=== PATIENT | male | born 1930 | race Caucasian/White ===

== ENCOUNTER 2017-12-09 11:03 | Inpatient (IN) ==
--- NOTE | 2017-12-09 12:02 | ED.PDOC ---
General ED Provider: Dr. KAYLA GUERRA Chief Complaint: Respiratory Complaint Mode of Arrival: Wheelchair Information Source: Patient Exam Limitations: No limitations Primary Care Provider: STEPHEN GEIGER Nursing and Triage Documentation Reviewed and Agree: Yes Does patient meet sepsis criteria?: No System Inflammatory Response Syndrome: Not Applicable Sepsis Protocol: For patient's 13 years and over: Temp is 96.8 and below OR 101 and greater Pulse >90 BPM Resp >20/minute Acutely Altered Mental Status Are patient's symptoms suggestive of a new infection, such as: -Pneumonia -Skin, Soft Tissue -Endocarditis -UTI -Bone, Joint Infection -Implantable Device -Acute Abdominal Infection -Wound Infection -Meningitis -Blood Stream Catheter Infection -Unknown Past Medical History - Social History Smoking Status: Current every day smoker Hx Substance Use: No Alcohol Screening: Occasionally Course - Course Vital Signs: Temp Pulse Resp BP Pulse Ox 12/09/17 11:06 96.9 F L 93 H 20 90/57 L 89 L Departure - Departure Allergies/Adverse Reactions: Allergies melatonin Adverse Reaction (Verified 12/09/17 11:46) Home Medications: Ambulatory Orders Acetaminophen [Tylenol] 1,000 mg PO DAILY 12/09/17 Acetaminophen/Diphenhydramine [Acetaminophen Pm Geltab] 1 each PO BEDTIME Aspirin 81 mg PO DAILY 12/09/17 Atorvastatin Calcium 40 mg PO BEDTIME 12/09/17 Cholecalciferol (Vitamin D3) [Vitamin D3] 1,000 unit PO BID 12/09/17 Escitalopram Oxalate 5 mg PO DAILY 12/09/17 Ferrous Sulfate 325 mg PO DAILY 12/09/17 L.acidoph,Paracasei, B.lactis [Probiotic] 2 each PO DAILY 12/09/17 Pantoprazole Sodium 40 mg PO DAILY 12/09/17 Phenazopyridine HCl 100 mg PO DAILY 12/09/17 Timolol Maleate 0.5% [Timoptic 0.5% Opth] 1 drop OP BEDTIME 12/09/17
[2017-12-09] MEDS ORDERED: ALBUTEROL 0.042% NEB NEB STA (12:05)
--- NOTE | 2017-12-09 12:25 | DI ---
EXAM: PA and lateral views of the chest HISTORY: Possible aspiration COMPARISON: None FINDINGS: There are some patchy increased lung markings in the left base and to a lesser degree the right base. There is no lobar infiltrate or large effusion. Cardiac and mediastinal silhouettes masood w no acute abnormality. Pacemaker is present with intact leads. No acute osseous or soft tissue abnor malities. IMPRESSION: 1. Patchy increased lung markings in the bilateral lung bases right greater than left. Although thi s could be on the basis of aspiration, chronic scarring and/or atelectasis could have a similar appea sharon. Follow-up would help clarify.
[2017-12-09] MEDS ORDERED: ZOSYN 3.375 GM 3.375 GM in SODIUM CHLORIDE 50 ML IV STA (13:33)
[2017-12-09] MEDS ORDERED: SODIUM CHLORIDE 1,000 ML IV STA (13:34)
[2017-12-09] MEDS ORDERED: VANCOMYCIN 1 GM in SODIUM CHLORIDE 250 ML IV STA (13:45)
[2017-12-09] MEDS ORDERED: XOPENEX 0.63 MG NEB PRN (13:47)
[2017-12-09] MEDS ORDERED: SOLU-MEDROL 125 MG IVP SCH (14:00)
[2017-12-09 15:10] VITALS: BMI 25.4
[2017-12-09] MEDS: SOLU-MEDROL 125 MG IVP SCH ×2 (15:37→21:48)
[2017-12-09] MEDS: SODIUM CHLORIDE 1,000 ML IV SCH (15:38)
[2017-12-09] MEDS: LOVENOX SUBCUT SCH (15:48)
[2017-12-09] MEDS ORDERED: LIPITOR ONE (19:56)
[2017-12-09] MEDS ORDERED: VITAMIN D ONE (19:56)
[2017-12-09] MEDS ORDERED: NON-FORMULARY MEDICATION (Atorvastatin Calcium [Atorvastatin Calcium] 40 MG) PO SCH (21:00)
[2017-12-09] MEDS: TIMOPTIC 0.5% OPTH OP SCH (21:49)
[2017-12-09] MEDS: VITAMIN D PO SCH (21:49)
[2017-12-10] MEDS: SODIUM CHLORIDE 1,000 ML IV SCH ×4 (03:29→23:51)
[2017-12-10] MEDS: SOLU-MEDROL 125 MG IVP SCH ×3 (05:02→21:31)
[2017-12-10] MEDS: ASPIRIN CHEWABLE PO SCH (08:15)
[2017-12-10] MEDS: VITAMIN D PO SCH ×2 (08:16→21:31)
[2017-12-10] MEDS: FERROUS SULFATE PO SCH (08:16)
[2017-12-10] MEDS: TYLENOL PO SCH (08:16)
[2017-12-10] MEDS: LEXAPRO PO SCH (08:16)
[2017-12-10] MEDS: PYRIDIUM PO SCH (08:16)
[2017-12-10] MEDS: PROTONIX PO SCH (08:16)
[2017-12-10] MEDS: LOVENOX SUBCUT SCH (08:17)
[2017-12-10] MEDS: FLORASTOR PO SCH (08:17)
[2017-12-10] MEDS ORDERED: NON-FORMULARY MEDICATION (Ferrous Sulfate [Ferrous Sulfate] 325 MG) PO SCH (09:00)
[2017-12-10] MEDS ORDERED: ACIDOPH PARACASEI B LACTIS PO SCH (09:00)
[2017-12-10] MEDS ORDERED: ESCITALOPRAM OXALATE 5 MG PO SCH (09:00)
[2017-12-10] MEDS: ZOSYN 3.375 GM 3.375 GM in SODIUM CHLORIDE 50 ML IV SCH ×4 (09:11→23:34)
[2017-12-10] MEDS ORDERED: DUONEB NEB SCH (12:00)
[2017-12-10] MEDS: DUONEB NEB SCH ×2 (14:20→20:05)
[2017-12-10] MEDS: TIMOPTIC 0.5% OPTH OP SCH (21:31)
[2017-12-10] MEDS: LIPITOR PO SCH (21:31)
[2017-12-11] MEDS: DUONEB NEB SCH ×4 (04:50→19:50)
[2017-12-11] MEDS: SOLU-MEDROL 125 MG IVP SCH ×3 (06:07→21:02)
[2017-12-11] MEDS: ZOSYN 3.375 GM 3.375 GM in SODIUM CHLORIDE 50 ML IV SCH ×3 (06:07→17:56)
[2017-12-11] MEDS: PROTONIX PO SCH (06:08)
[2017-12-11] MEDS: FLORASTOR PO SCH (08:57)
[2017-12-11] MEDS: LEXAPRO PO SCH (08:57)
[2017-12-11] MEDS: VITAMIN D PO SCH ×2 (08:57→21:03)
[2017-12-11] MEDS: PYRIDIUM PO SCH (08:57)
[2017-12-11] MEDS: ASPIRIN CHEWABLE PO SCH (08:59)
[2017-12-11] MEDS: FERROUS SULFATE PO SCH (08:59)
[2017-12-11] MEDS: TYLENOL PO SCH (09:00)
[2017-12-11] MEDS: LOVENOX SUBCUT SCH (09:01)
--- NOTE | 2017-12-11 11:29 | RS.BEDDYS ---
Subjective Number of treatment sessions: 1 Date of Evaluation: 12/11/17 Treatment Diagnosis: aspiration pneumonia Current Level of Function: This 87 year old male presents at the bedside with coughing, decreased safety awareness, and general weakness. The patient is at risk for aspiration/penetration with PO intake. Current Diet: Puree and honey thick liquids. Current Subjective/complaints:: The patient reported he has a hx of swallowing difficulty. However, he could not verbalize or describe swallowing difficulties. The patient's son-in-law reported the pt had a swallow study completed in the past year. The study revealed strategies could be utilized to reduce risk for aspiration. However, the son-in-law stated that the patient has no hx with modifications with diet texture or liquid consistency. Medical History Comments:: UTI, dysphagia, pneumonia Hx Home Medications: Refer to medications for current list. Patient's Goals: To consume safest and least restrictive diet. General Information - General Denture Type: Full- Upper (Fits ), Partial- Lower (Requires denture cream, but fits well.) Patient Orientation: Person Ability to Follow Directions: Fair (Required a lot of visual cues and a model to imitate HOSE BUILDER's instructions.) - Voice Voice Quality: Harsh (Grave-like quality) Voice Loudness: Mildly Loud Oral-Facial Assessment - Face Face Comment: At rest does not appear with droop, however pt had left side deficits - Dental/Labial Lip Protrusion: Weak Lip Retraction: Reduced ROM Puff Cheeks: Reduced Strength Lips Comment: Labial structures weak with poor to no labial closure on command. - Lingual Protrusion: Weak Retraction: Weak Tip Lateralization: Weak Repeated Tip Lateralization: Weak Tip Elevation: Weak Repeated Tip Elevation: Weak Comments: Lingual coordination with minimal difficulty. Lingual movements with weak lateralization. Lingual surface dry and cracked. Appeared to have decreased lingual sensation. - Palate and Pharynx Gag Reflex Response: Normal - Comments/Additional Info. Comments:: Pt completed oral motor evaluation with minimal difficulty. Deficits with buccal strength, and labial strength reduce oral pressure for efficient swallow. Food Presentation - Solids Food Presented: Mechanical Soft (Finger food) Behaviors/Comments: Pt was presented the food. Pt had poor labial seal, decreased rotarty chew and minimal bolus formation. Post swallow pt had mild residue in bilateral sulci. Pt had minimal awareness to oral residue. When the HOSE BUILDER provided verbal cues to swallow, pt attempted to clear lateral sulci with lingual sweep. Liquid wash was presented and pt cleared residue without difficulty. no overt s/s of aspiration with diet texture. - Liquids Liquid Presented: Thin (via tsp and straw.) Behaviors/Comments: Pt had immediate cough and difficulty with thin liquids with spoon. When straw drink was presented pt had better coordination with delayed cough. Pt's O2 sats dropped to 88 with thin liquids and with the straw drink. - Recommendations: Dysphagia Evaluation Dietary Recommendations: Dysphagia Mechanical Soft, Catlett- thick liquids Comments:: Pt to have supervision with meals to increase safe swallow precautions and utilize compensatory swallow strategies. Dysphagia Swallow Precautions/Strategies: Sitting Upright (90 deg), Double Swallow, Liquids from Cup, Small Bites and Sips, Alternate Liquids/Solids Comments:: Pt to have supervision to increase awareness to use effortful swallow. Pt to have 1/2 tablespoon size bites and use liquid wash after every bite. Monitor breath support and respiratory distress frequently during the meal. Encourage pacing to reduce impulsive behaviors. Prevent putting more food into mouth prior to swallowing initial bite. - Summary Dysphagia Evaluation Summary: Pt presents with oral dysphagia as evidenced by weakness with labial,buccal, and lingual structures. Poor oral awareness and decreased oral sensation was determined at the bedside due to oral stasis and residuals with PO intake. Pt requires supervision and encouragement to increase safety awareness with PO intake. Pt has a mild risk for aspiration/penetration. Further Therapy Indicated?: Yes Comments: Pt to continue ST in the [facility]. Rehab Potential: Good Functional Reporting G Codes: Swallowing Current CK Goal CJ Severity Impairment Rationale: Mechanical soft diet texture with nectar thick liquids. Short Term Goals Problem: Oral cavity Goal #1: Pt to complete oral motor exercises with minimal difficulty Goal to be met by: 12/18/17 Problem: Bolus formation Goal #2: Pt to coordinate food bolus with minimal difficulty on 02/14. Goal to be met by: 12/18/17 Problem: sensation Goal #3: Pt to increase oral sensation post thermal/tactile stimulation 02/14. Goal to be met by: 12/18/17 Problem: Residuals Goal #4: Pt to use swallow strategies with PO intake. Goal to be met by: 12/18/17 [facility] Goals Problem: Aspiration Goal #1: Pt to consume PO intake without overt s/s of aspiration Goal to be met by: 12/18/17 Plan Duration of Treatment: 1 Week Frequency of Treatment: 1-2x a week Anticipated Discharge Destination: [facility] Comments: HOSE BUILDER recommends pt to continue speech therapy in the [facility] to: build oral motor strength specifically wiht labial, lingual structures. Improve bolus formation, increase oral sensation, train to use compensatory swallow strategies, increase safe swallow awareness and increase caregivers awareness with safe swallow precautions. - Treatment Code (1) Oral phase dysphagia Code(s): R13.11 - DYSPHAGIA, ORAL PHASE
--- NOTE | 2017-12-11 13:00 | HP ---
DATE OF SERVICE: 12/09/17 CHIEF COMPLAINT: Cough and congestion, change in mental status. HISTORY OF PRESENT ILLNESS: This is a 87-year-old female who is a retirement resident came to the emergency room with weakness, aspiration and not himself. He was seen by Dr. Webb. Saturation was 89, BP 90, temperature 96.9. White count 12,000 with a left shift. BUN 31, creatinine 1.36. Urine positive for leukocyte esterase and nitrites. Chest x-ray done showed bibasilar infiltrate. At that time, the patient was admitted to the hospital with facility acquired, aspiration pneumonia, urinary tract infection and dehydration. REVIEW OF SYSTEMS: CONSTITUTIONAL: Weakness, tiredness. No fever, no chills. HEENT: Normal. ENDOCRINE: No weight gain; no weight loss. CVS: No chest pain. No PND, no orthopnea. No shortness of breath. No PND, no orthopnea. RESPIRATORY: Cough and congestion. No hemoptysis. GI: No nausea, no vomiting. No abdominal pain. No melena. : No hematuria. No polyuria. MUSCULOSKELETAL: Aches and pains. PSYCHIATRIC: Change in mental status. Not anxious. No depression. No suicidal thoughts. No homicidal thoughts. SKIN: Intact, no open lesions. PAST MEDICAL HISTORY: CAD Permanent pacemaker Dyslipidemia CVA right side Dysphagia History of pneumonia GERD Osteoarthritis Depression Anxiety PAST SURGICAL HISTORY: Glaucoma history PERSONAL HISTORY: Does smoke, one cigarette a day and drinks one beer a day. He lives at the retirement. The patient's family is very caring. The patient's daughter is at the bedside. FAMILY HISTORY: Not significant. MEDICATIONS: (HOME) Timolol Pantoprazole Probiotic Ferrous Sulfate Escitalopram Atorvastatin Aspirin Tylenol Vitamin D3 Pyridium ALLERGIES: MELATONIN PHYSICAL EXAMINATION: GENERAL: Sick looking male lying in bed, not in any distress. V/S: BP 135/63, respiratory rate 20, heart rate 83, temperature 98.4, saturation 95. HEENT: Atraumatic, normocephalic. No scleral icterus. Pallor positive. Mucosa dry. NECK: Supple. No JVD, no bruit. No lymphadenopathy. No thyromegaly. HEART: S1, S2 normal. No murmur. No cyanosis or clubbing. No ascites. LUNGS: Decreased breath sounds with basilar crackles. No rales or rhonchi. ABDOMEN: Soft, nontender. Bowel sounds are active. No CVA tenderness. No rigidity or guarding. EXTREMITIES: No pedal edema. No cyanosis or clubbing MUSCULOSKELETAL: Normal joints, no swelling. NEUROLOGIC: As discussed. The patient is awake and alert, confused to time, place and person. The patient's daughter is helping him to calm down. SKIN: Intact; no open lesions. LYMPHATIC: No lymph nodes palpable. LABS: White count 12.68, hemoglobin 12.1, hematocrit 38.1, platelet count 267. Sodium 139, potassium 4.0, chloride 108, bicarb 21, BUN 31, creatinine 1.36, glucose 132. ASSESSMENT: 1. ASPIRATION PNEUMONIA 2. URINARY TRACT INFECTION 3. CHANGE IN MENTAL STATUS SECONDARY TO UTI AND PNEUMONIA 4. CAD 5. PERMANENT PACEMAKER 6. HYPERTENSION 7. DYSLIPIDEMIA 8. OSTEOARTHRITIS 9. DJD SPINE 10. DEPRESSION 11. CVA WITH RIGHT-SIDED WEAKNESS PLAN: 1. Admit the patient to the regular floor. 2. CBC, CMP today and daily. 3. Cardiac enzymes and troponins. 4. IV fluids. 5. Zosyn q.6hr. 6. One dose of Vancomycin. 7. Duonebs. 8. Solu-Medrol 125 mg q.8hr 9. IV fluids 40 mL/hr TIME SPENT: MORE THAN 65 minutes MTDD
--- NOTE | 2017-12-11 13:07 | PN ---
DATE OF SERVICE: 12/10/17 SUBJECTIVE: Admitted with aspiration pneumonia. He is still coughing with congestion. He was able to rest well. No fever, no chills. REVIEW OF SYSTEMS: CONSTITUTIONAL: No fever, no chills. HEENT: Normal. ENDOCRINE: No weight gain, no weight loss. CVS: No angina symptoms. No CHF symptoms. No palpitations. No atypical chest pain for CAD. No shortness of breath. No PND, no orthopnea. RESPIRATORY: Cough and congestion. No hemoptysis. GI: No nausea, no vomiting. No abdominal pain. : No hematuria. No polyuria. MUSCULOSKELETAL: No joint swelling. PSYCHIATRIC: Not anxious. No depression. No suicidal thoughts. No homicidal thoughts. SKIN: Intact. No rash. PHYSICAL EXAMINATION: V/S: BP 129/62, respiratory rate 18, heart rate 60, temperature 98.0, saturation 94% on 2L. HEENT: Normocephalic, atraumatic. Mucosa dry. Pallor positive. No icterus. NECK: Supple. No JVD, no carotid bruit. No lymphadenopathy. LUNGS: Decreased breath sounds with basilar crackles, left more than right. HEART: S1, S2 normal. No S3. No murmur, gallop or regurgitation. ABDOMEN: Soft, nontender. Bowel sounds active. No rigidity. No rebound or guarding. No CVA tenderness. EXTREMITIES: No cyanosis, clubbing or pedal edema. MUSCULOSKELETAL: No joint swelling. NEUROLOGIC: Awake, alert but not oriented. No focal deficit. LYMPHATIC: No lymph nodes palpable. SKIN: Intact. LABS: White count 11.32, hemoglobin 10.7, hematocrit 33.2, platelet count 245. Sodium 138, potassium 4.2, chloride 110, bicarb 21, BUN 31, creatinine 1.14, glucose 165. ASSESSMENT: 1. ASPIRATION PNEUMONIA 2. URINARY TRACT INFECTION 3. CHANGE IN MENTAL STATUS 4. CVA WITH RIGHT-SIDED WEAKNESS 5. OSTEOARTHRITIS 6. DJD SPINE 7. DEPRESSION PLAN: 1. Continue Zosyn 2. Duonebs 3. Decrease the fluids to 40 mL/hr 4. Solu-Medrol q.8hr 5. Lovenox for DVT prophylaxis TIME SPENT: More than 35 minutes MTDD
[2017-12-11] MEDS: LIPITOR PO SCH (21:02)
[2017-12-11] MEDS: TIMOPTIC 0.5% OPTH OP SCH (21:03)
[2017-12-12] MEDS: ZOSYN 3.375 GM 3.375 GM in SODIUM CHLORIDE 50 ML IV SCH ×4 (00:59→17:15)
[2017-12-12] MEDS: DUONEB NEB SCH ×4 (05:15→20:18)
[2017-12-12] MEDS: SOLU-MEDROL 125 MG IVP SCH ×3 (05:19→21:10)
[2017-12-12] MEDS: SODIUM CHLORIDE 1,000 ML IV SCH ×2 (05:25→18:06)
[2017-12-12] MEDS: PROTONIX PO SCH (05:47)
[2017-12-12] MEDS: LOVENOX SUBCUT SCH (08:49)
[2017-12-12] MEDS: LEXAPRO PO SCH (08:50)
[2017-12-12] MEDS: PYRIDIUM PO SCH (08:51)
[2017-12-12] MEDS: TYLENOL PO SCH (08:51)
[2017-12-12] MEDS: VITAMIN D PO SCH ×2 (08:51→20:56)
[2017-12-12] MEDS: ASPIRIN CHEWABLE PO SCH (08:51)
[2017-12-12] MEDS: FLORASTOR PO SCH (08:52)
[2017-12-12] MEDS: MUCINEX PO SCH ×2 (09:01→20:56)
[2017-12-12] MEDS: FERROUS SULFATE PO SCH (09:01)
[2017-12-12] MEDS: TESSALON PERLES PO SCH ×3 (09:02→20:56)
--- NOTE | 2017-12-12 09:18 | PN ---
DATE OF SERVICE: 12/11/17 SUBJECTIVE: The patient was coughing and congestion getting some phlegm otherwise no fever or chills. REVIEW OF SYSTEMS: CONSTITUTIONAL: No fever, no chills. HEENT: Normal. ENDOCRINE: No weight gain, no weight loss. CVS: No angina symptoms. No CHF symptoms. No palpitations. No atypical chest pain for CAD. No shortness of breath. No PND, no orthopnea. RESPIRATORY: Cough, no hemoptysis. GI: No nausea, no vomiting. No abdominal pain. : No hematuria. No polyuria. MUSCULOSKELETAL: No joint swelling. PSYCHIATRIC: Not anxious. No depression. No suicidal thoughts. No homicidal thoughts. SKIN: Intact. No rash. PHYSICAL EXAMINATION: V/S: blood pressure 133/49, respiratory rate 16, heart rate 57, temperature 98.6 with saturation 92 on 2 liters. HEENT: Normocephalic, atraumatic. Mucosa dry. Pallor positive. No icterus. NECK: Supple. No JVD, no carotid bruit. No lymphadenopathy. LUNGS: Decreased and basilar crackles. Clear to auscultation. No rales or rhonchi. HEART: S1, S2 normal. No S3. No murmur, gallop or regurgitation. ABDOMEN: Soft, nontender. Bowel sounds active. No rigidity. No rebound or guarding. No CVA tenderness. EXTREMITIES: No cyanosis, clubbing or pedal edema. MUSCULOSKELETAL: No joint swelling. NEUROLOGIC: Awake, alert. No focal deficit. Right sided weakness. LYMPHATIC: No lymph nodes palpable. SKIN: Intact. LABS: WBC 10.61, hgb 9.9, hct 30.3, plt count 212, sodium 139, potassium 4.4, chloride 113, bicarb 20, BUN 39, creatinine 1.19 and glucose 164. ASSESSMENT: 1. Bibasilar pneumonia, aspiration 2. Acute on chronic renal failure 3. Dementia 4. CVA 5. Permanent pacemaker 6. Dysphagia 7. Osteoarthritis PLAN: 1. Continue Lovenox 2. Levalbuterol 3. Solu-Medrol 4. Zosyn TIME SPENT: More than 35 minutes MTDD
--- NOTE | 2017-12-12 12:06 | DI ---
EXAM: Chest one view, frontal view only. HISTORY: Pneumonia follow-up. COMPARISON: 12/09/2017. FINDINGS: Left-sided pacemaker again noted. Heart size is at the upper limits of normal. Linear op acities seen in both lung bases which appear stable. Upper lungs are clear. No pleural effusion or pneumothorax identified. No acute osseous abnormality detected. IMPRESSION: Stable bibasilar interstitial opacities which could represent chronic interstitial changes, atelectas is or pneumonia. CT may provide further characterization.
--- NOTE | 2017-12-12 14:02 | RS.PTINEVL ---
Subjective - Patient information Date of Evaluation: 12/12/17 Date of Arrival on Unit: 12/09/17 Admitted From:: [facility] (was in [place] for rehab) Diagnosis: Aspiration pneumonia Usual Living Arrangement: [facility]rangement Comments: currently a resident at [facility] for rehab. Home Environment: Level/No stairs Medical History: Hypertension, CVA/TIA, Arthritis Medical History Comments:: hyperlipidemia, depression, anxiety Surgical History: Colostomy Surgical History Comments:: pacemaker Medications: see chart Subjective Information/ Patient Comments:: pt's son in law states pt was working with PT at [facility] with rwx approx 20 steps and would have to rest. States pt is hoping to go home if he can get strong enough. - Level of function Prior to this admission, the patient could do the following:: Partially Dependent Ambulation Current Level of Function: Partially Dependent Current Equipment Used at Home: rwx Interventions - Objective Patient Orientation: Person, Place Current Interventions: Oxygen, Telemetry Observation: pt seen sitting up in w/c. Range of Motion - ROM Right Upper Extremity AROM: Slight limitation (shld flex limited due to OA) Left Upper Extremity AROM: Slight limitation (shld flex limited due to OA) Right Lower Extremity AROM: WFL's Left Lower Extremity AROM: WFL's Muscle Strength - Muscle Strength Right Upper Extremity Strength: Mild Weakness (shld flex 3+/5, elbow flex/ext 4- /5) Left Upper Extremity Strength: Mild Weakness (shld flex 3+/5, elbow flex/ext 4-/ 5) Right Lower Extremity Strength: Mild Weakness (hip flex 4-/5, knee flex/ext 4-/5 , ankle DF/PF 4/5) Left Lower Extremity Strength: Mild Weakness (hip flex 4-/5, knee flex/ext 4-/5 , ankle DF/PF 4/5) Sensation - Sensation Right Upper Extremity Sensation: Intact/Normal Left Upper Extremity Sensation: Intact/Normal Right Lower Extremity Sensation: Intact/Normal Left Lower Extremity Sensation: Intact/Normal Palpation Palpation Findings: None/Normal Balance - Sitting Balance and Reactions Static Sitting Balance: Fair Dynamic Sitting Balance: Poor Sitting Equilibrium Reactions: Delayed Left, Delayed Right Sitting Protective Reactions: Delayed Left, Delayed Right - Standing Balance and Reactions Static Standing Balance: Poor Dynamic Standing Balance: Poor Standing Equilibrium Reactions: Delayed Left, Delayed Right Standing Protective Reactions: Delayed Left, Delayed Right Functional Mobility - Transfers Sit to Stand: Min Assist, 2 person assist Stand to Sit: Min Assist, 1 person assist - Safety Awareness Safety Awareness: Fair SHAHNAZ INDEX SCORE: n/a Ambulation - Ambulation Assistive Device Used: Rolling Walker Orthotic/Prosthetic Device: No Distance: 30ft x 2 Assistance needed with Ambulation: Min Assist, 2 person assist Quality of Ambulation: pt amb with min x 1 +1 for O2 and w/c. Gait Deviations: Forward posture, Short stride, Deviates from path Ambulation Comments: pt requires assist to guide rolling walker. pt amb with flexed posture, decreased step length. pt with foot slap on LLE Factors Affecting Ambulation: Decreased Balance, Breathing/O2 Saturation, Weakness, Decreased Safety, Cognitive Status, Limited Endurance Treatment time - Units charged Gait trainin (pt also performed AP, LAQ, seated hip flex) - Time with patient Length of Evaluation: 19 Total treatment time: 34 Patient Education - Education Patient Education: Education of Plan of Care Teaching Recipient: Patient, Family Teaching Methods: Discussion Comments: discussion with pt and son in law regarding POC Assessment - Assessment Problem List:: Decreased level of function, Requires training/education, Decreased safety/Risk of falls, Weakness, Cognitive status limits abilities Rehab Potential: Good Further Therapy Indicated?: Yes Candidate for Swing Bed for Therapy Services?: pt may no be a candidate for swing bed due to plans to return to longterm. Short Term Goals GOAL #1: Demonstrate rolling and scooting up in bed min x 1 Goal to be met by: 12/15/17 GOAL #2: Transfer sup to/from sit to/from stand minx 1 Goal to be met by: 12/15/17 GOAL #3: pt amb with rwx 40ft with minx 1 without rest period. Goal to be met by: 12/15/17 Bilingual Sales Consultant Goals GOAL #1: Transfer sup to/from sit to/from stand CGA Goal to be met by: 12/18/17 GOAL #2: pt amb with rwx 75ft without seated rest period CGA to min x 1 Goal to be met by: 12/18/17 GOAL #3: pt with improved dyn stand balanc fair + to good - no LOB with gait Goal to be met by: 12/18/17 Plan Plan of Care: Therapeutic EX, Therapeutic Activity Other:: gait training Duration of Treatment: 6 days Anticipated Discharge Destination: [facility] Treatment Diagnosis (ICD 10 Codes): R26.1 difficulty walking. R26.81 balance impaired. m62.81 muscle weakness Has the Physician been added for Co-signature?: Yes
[2017-12-12] MEDS: LIPITOR PO SCH (20:56)
[2017-12-12] MEDS: TIMOPTIC 0.5% OPTH OP SCH (20:56)
[2017-12-13] MEDS: ZOSYN 3.375 GM 3.375 GM in SODIUM CHLORIDE 50 ML IV SCH ×3 (01:02→12:45)
[2017-12-13] MEDS: DUONEB NEB SCH ×3 (04:49→14:17)
[2017-12-13] MEDS: SOLU-MEDROL 125 MG IVP SCH ×2 (05:32→12:59)
[2017-12-13] MEDS: PROTONIX PO SCH (05:51)
[2017-12-13] MEDS: TYLENOL PO SCH (08:08)
[2017-12-13] MEDS: FLORASTOR PO SCH (08:09)
[2017-12-13] MEDS: MUCINEX PO SCH (08:10)
[2017-12-13] MEDS: TESSALON PERLES PO SCH ×2 (08:10→14:54)
[2017-12-13] MEDS: VITAMIN D PO SCH (08:10)
[2017-12-13] MEDS: ASPIRIN CHEWABLE PO SCH (08:10)
[2017-12-13] MEDS: PYRIDIUM PO SCH (08:10)
[2017-12-13] MEDS: FERROUS SULFATE PO SCH (08:10)
[2017-12-13] MEDS: LEXAPRO PO SCH (08:11)
[2017-12-13] MEDS: LOVENOX SUBCUT SCH (08:11)
--- NOTE | 2017-12-13 10:57 | PN ---
DATE OF SERVICE: 12/12/17 SUBJECTIVE: The patient's daughter was complaining that he has been coughing through the night and she was not able to sleep as she was sleeping in the same room. REVIEW OF SYSTEMS: CONSTITUTIONAL: No fever, no chills. HEENT: Normal. ENDOCRINE: No weight gain, no weight loss. CVS: No angina symptoms. No CHF symptoms. No palpitations. No atypical chest pain for CAD. No shortness of breath. No PND, no orthopnea. RESPIRATORY: No cough, no hemoptysis. GI: No nausea, no vomiting. No abdominal pain. : No hematuria. No polyuria. MUSCULOSKELETAL: No joint swelling. PSYCHIATRIC: Not anxious. No depression. No suicidal thoughts. No homicidal thoughts. SKIN: Intact. No rash. PHYSICAL EXAMINATION: V/S: Blood pressure 126/49, respiratory rate 14, heart rate 59 and temperature 97.9 with saturation 97%. HEENT: Normocephalic, atraumatic. Mucosa dry. Pallor positive. No icterus. NECK: Supple. No JVD, no carotid bruit. No lymphadenopathy. LUNGS: Decreased and basilar crackles. Clear to auscultation. No rales or rhonchi. HEART: S1, S2 normal. No S3. No murmur, gallop or regurgitation. ABDOMEN: Soft, nontender. Bowel sounds active. No rigidity. No rebound or guarding. No CVA tenderness. EXTREMITIES: No cyanosis, clubbing or pedal edema. Right sided weakness. MUSCULOSKELETAL: No joint swelling. NEUROLOGIC: Awake, alert. No focal deficit. LYMPHATIC: No lymph nodes palpable. SKIN: Intact. LABS: WBC 10.61, hgb 9.9, hct 30.3, plt count 212, sodium 139, potassium 4.1, chloride 113, bicarb 20, BUN 39, creatinine 1.19, glucose 164. ASSESSMENT: 1. Bibasilar pneumonia, aspiration 2. Persistent cough 3. Dehydration 4. CVA 5. Anemia 6. Renal failure PLAN: 1. Chest x-ray 2. Continue the Rocephin 3. Vancomycin 4. DUO NEBS 5. Breathing treatments 6. Daily I&O's TIME SPENT: More than 35 minutes MTDD
[2017-12-13] MEDS: SODIUM CHLORIDE 1,000 ML IV SCH (11:41)
[2017-12-13 14:28] VITALS: BP 112/52; TEMP 98.3
--- NOTE | 2017-12-14 10:15 | DS ---
DATE OF SERVICE: 12/13/17 FINAL DIAGNOSIS: 1. Aspiration pneumonia with continued aspiration from the regular food. The patient been changed to soft diet. 2. CVA with right sided weakness 3. Dyslipidemia 4. Colon cancer, status post collectomy with reversal 5. Kidney stones, 06/25 6. Ostearthritis 7. Depression 8. Anxiety 9. Permanent pacemaker 10.Colonoscopy DISCHARGE INSTRUCTIONS: Persistent pneumonia, needing antibiotics so patient will be placed in transitional care. Continue the medication. MEDICATIONS AT DISCHARGE: Rocephin DUO NEBS Breathing treatments Lovenox for the DVT prophylaxis DIET INSTRUCTIONS: Thickened diet DISEASE SPECIFIC EDUCATION: Pneumonia and pneumonia vaccination been discussed and verbalized understanding. HOSPITAL COURSE: Juan Woods who is an 87 year old male came to the emergency room with aspiration, shortness of breath and found to have fever and bibasilar pneumonia. Admitted to the hospital. WBC was 12,000 and started on the antibiotic Rocephin, IV fluids and steroids. Repeat chest x-ray done two days ago which still showed the persistent pneumonia. The patient is still coughing and hard time getting the phlegm so thought it would be appropriate for the patient to be transitional care and get IV antibiotics more [facility]. Been discussed with the patient's family and verbalized understanding as the patient will be placed in the transitional care. TIME SPENT: MORE THAN 65 MINUTES MTDD
== END 2017-12-13 15:05 | disposition swing bed (61) | DRG 947 ==
LOC: ED 11:03 → MEDSURG B 14:03
PROVIDERS: ADMIT Emergency Medicine; ATTEND Emergency Medicine
DX: R53.1 Weakness (principal); J69.0 Pneumonitis due to inhalation of food and vomit; I63.9 Cerebral infarction, unspecified; N39.0 Urinary tract infection, site not specified; N17.9 Acute kidney failure, unspecified; G81.91 Hemiplegia, unspecified affecting right dominant side; D64.9 Anemia, unspecified; I25.10 Atherosclerotic heart disease of native coronary artery without angina pectoris; I10 Essential (primary) hypertension; R41.82 Altered mental status, unspecified; R13.10 Dysphagia, unspecified; E86.0 Dehydration; E78.5 Hyperlipidemia, unspecified; M19.90 Unspecified osteoarthritis, unspecified site; M47.9 Spondylosis, unspecified; F32.9 Major depressive disorder, single episode, unspecified; F03.90 Unspecified dementia, unspecified severity, without behavioral disturbance, psychotic disturbance, mood disturbance, and anxiety; F41.9 Anxiety disorder, unspecified
CPT/HCPCS: 36415; 80053; 81001; 85025; 87040; 87081; 87086; 93005; 93010; 94640; 94667; 94668; 96365; 96375; 99284

== ENCOUNTER 2017-12-13 15:14 | Inpatient (IN) | payer OTHER ==
[2017-12-13] MEDS ORDERED: XOPENEX 0.63 MG NEB PRN (15:41)
[2017-12-13] MEDS: ZOSYN 3.375 GM 3.375 GM in SODIUM CHLORIDE 50 ML IV SCH ×2 (17:36→23:01)
[2017-12-13] MEDS: DUONEB NEB SCH (20:25)
[2017-12-13] MEDS ORDERED: NON-FORMULARY MEDICATION (Atorvastatin Calcium [Atorvastatin Calcium] 40 MG) PO SCH (21:00)
[2017-12-13] MEDS: TIMOPTIC 0.5% OPTH OP SCH (21:25)
[2017-12-13] MEDS: LIPITOR PO SCH (21:26)
[2017-12-13] MEDS: MUCINEX PO SCH (21:26)
[2017-12-13] MEDS: SOLU-MEDROL 125 MG IVP SCH (21:27)
[2017-12-13] MEDS: TESSALON PERLES PO SCH (21:27)
[2017-12-13] MEDS: VITAMIN D PO SCH (21:29)
[2017-12-14] MEDS: DUONEB NEB SCH ×4 (04:43→21:45)
[2017-12-14] MEDS: SOLU-MEDROL 125 MG IVP SCH ×2 (06:09→12:47)
[2017-12-14] MEDS: PROTONIX PO SCH (06:10)
[2017-12-14] MEDS: ZOSYN 3.375 GM 3.375 GM in SODIUM CHLORIDE 50 ML IV SCH ×3 (06:10→17:14)
[2017-12-14] MEDS: FLORASTOR PO SCH (08:34)
[2017-12-14] MEDS: TYLENOL PO SCH (08:34)
[2017-12-14] MEDS: ASPIRIN CHEWABLE PO SCH (08:34)
[2017-12-14] MEDS: PYRIDIUM PO SCH (08:35)
[2017-12-14] MEDS: LEXAPRO PO SCH (08:35)
[2017-12-14] MEDS: MUCINEX PO SCH (08:37)
[2017-12-14] MEDS: TESSALON PERLES PO SCH ×2 (08:37→15:32)
[2017-12-14] MEDS: LOVENOX SUBCUT SCH (08:37)
[2017-12-14] MEDS: VITAMIN D PO SCH (08:37)
[2017-12-14] MEDS ORDERED: ESCITALOPRAM OXALATE 5 MG PO SCH (09:00)
--- NOTE | 2017-12-14 13:31 | RS.PTINEVL ---
Subjective - Patient information Date of Evaluation: 12/14/17 Date of Arrival on Unit: 12/13/17 Admitted From:: In-House Transfer (swing bed) Diagnosis: aspiration pneumonia Usual Living Arrangement: Senior Care Living Arrangement Comments: currently a resident at [facility] for rehab. Home Environment: Level/No stairs Medical History: CVA/TIA, Arthritis Medical History Comments:: depression, anxiety, hyperlipidemia LATEX ALLERGY?: No Surgical History Comments:: pacemaker, colostomy Medications: see chart Subjective Information/ Patient Comments:: pt states that he is doing ok, wants to try to walk. - Level of function Prior to this admission, the patient could do the following:: Partially Dependent Ambulation Current Level of Function: Partially Dependent Current Equipment Used at Home: w/c, rwx Pain Assessement - Location R knee Description: Aching Pain Behavior: Rubbing Site Pain Aggravating Factors: Exercise/Activity, Standing, Walking, Stair Climbing Pain Alleviating Factors: Medication Interventions - Objective Patient Orientation: Person, Place, Time, Situation Current Interventions: IV's, Oxygen Range of Motion - ROM Right Upper Extremity AROM: Slight limitation (Limited R shld ROM) Left Upper Extremity AROM: WFL's Right Lower Extremity AROM: WFL's Left Lower Extremity AROM: WFL's Muscle Strength - Muscle Strength Right Upper Extremity Strength: Mild Weakness (shld flex 3-/5, elbow flex/ext 3+ /5, decreased back tender cylinder) Left Upper Extremity Strength: Mild Weakness (shld flex 4-/5, elbow flex/ext4/5 , decreased back tender cylinder) Right Lower Extremity Strength: Mild Weakness (hip flex 4-/5, knee flex/ext 4-/5 , ankle DF/PF 4.5) Left Lower Extremity Strength: Mild Weakness (hip flex 4/5, knee flex/ext 4/5 , ankle DF/pf 4/5) Sensation - Sensation Right Upper Extremity Sensation: Intact/Normal Left Upper Extremity Sensation: Intact/Normal Right Lower Extremity Sensation: Impaired (reports n/t R knee) Left Lower Extremity Sensation: Intact/Normal Palpation Palpation Findings: Tenderness Comments:: R shld and R knee Balance - Sitting Balance and Reactions Static Sitting Balance: Fair Dynamic Sitting Balance: Poor Sitting Equilibrium Reactions: Delayed Right Sitting Protective Reactions: Delayed Right - Standing Balance and Reactions Static Standing Balance: Poor Dynamic Standing Balance: Poor Standing Equilibrium Reactions: Delayed Left, Delayed Right Standing Protective Reactions: Delayed Left, Delayed Right - Comments Balance Assessment Comments: pt leans to L with sitting as well as standing. Functional Mobility - Transfers Sit to Stand: Min Assist, 2 person assist Stand to Sit: Min Assist, 2 person assist - Safety Awareness Safety Awareness: Fair SHAHNAZ INDEX SCORE: 22 Ambulation - Ambulation Assistive Device Used: Rolling Walker Orthotic/Prosthetic Device: No Distance: 25ft x 2 Assistance needed with Ambulation: Min Assist, 2 person assist Quality of Ambulation: pt amb with min x 2 +1 for IV/O2 and to bring chair, Gait Deviations: Ataxic gait, Forward posture, Short stride, Deviates from path Ambulation Comments: pt pushes to L while amb. Factors Affecting Ambulation: Decreased Balance, Breathing/O2 Saturation, Weakness, Decreased Coordination, Decreased Safety, Limited Endurance Treatment time - Units charged Gait trainin - Time with patient Length of Evaluation: 18 Total treatment time: 29 Patient Education - Education Patient Education: Activity Modification, Education of Plan of Care Teaching Recipient: Patient Teaching Methods: Discussion (discussion with patient regarding POC as well as PLB) Assessment - Assessment Problem List:: Decreased level of function, Requires training/education, Decreased safety/Risk of falls, Weakness, Cognitive status limits abilities Rehab Potential: Good Further Therapy Indicated?: Yes Candidate for Swing Bed for Therapy Services?: pt is currently swing bed candidate Evaluation Complexity: HISTORY: Medium (CVA, pneumonia, aspiration, ), EXAM OF BODY SYSTEMS: Medium (strength, balance poathe), CLINICAL PRESENTATION: Medium ( evolving), CLINICAL DECISION MAKING: Medium Short Term Goals GOAL #1: Demonstrate rolling and scooting up in bed min x 1 Goal to be met by: 12/22/17 GOAL #2: Transfer sup to/from sit to/from stand minx 1 Goal to be met by: 12/22/17 GOAL #3: pt amb with rwx 40ft with minx 1 without rest period. Goal to be met by: 12/22/17 [facility] Goals GOAL #1: Transfer sup to/from sit to/from stand CGA Goal to be met by: 12/29/17 GOAL #2: pt amb with rwx 75ft without seated rest period CGA to min x 1 Goal to be met by: 12/29/17 GOAL #3: pt with improved dyn stand balanc fair + to good - no LOB with gait Goal to be met by: 12/29/17 Plan Plan of Care: Therapeutic EX, Therapeutic Activity Other:: gait training Frequency of Treatment: 1-2 X day, as tolerated Duration of Treatment: 2 Weeks Anticipated Discharge Destination: Home Treatment Diagnosis (ICD 10 Codes): ataxic gait R 26.0. R26.81 balance impaired. M62.81 muscle weakness Has the Physician been added for Co-signature?: Yes
[2017-12-14] MEDS: SODIUM CHLORIDE 1,000 ML IV SCH ×2 (13:42→18:40)
--- NOTE | 2017-12-14 14:01 | RS.OTINEVL ---
Subjective - Patient information Date of Evaluation: 12/14/17 Date of Arrival on Unit: 12/13/17 Admitted From:: In-House Transfer (swing bed) Usual Living Arrangement: Group Home Living Arrangement Comments: currently a resident at [facility] for rehab. Home Environment: Level/No stairs Medical History: CVA/TIA, Arthritis Medical History Comments:: depression, anxiety, hyperlipidemia LATEX ALLERGY?: No Surgical History: Cholecystectomy, Colostomy Surgical History Comments:: pacemaker, colostomy Medications: see chart Subjective Information/ Patient Comments:: "This is the side I had the stroke on." - Level of function Prior to this admission, the patient could do the following:: Partially Dependent Ambulation Current Level of Function: Partially Dependent Current Equipment Used at Home: w/c, rwx Pain Assessment - Pain Pain Score: 0 Interventions - Objective Patient Orientation: Person, Place Current Interventions: IV's, Oxygen Observation: Pt leans to the right during sitting and standing and walking due to the CVA. Interventions - ROM Right Upper Extremity AROM: Moderate limitation Left Upper Extremity AROM: Moderate limitation - Strength Right Upper Extremity Strength: Mild Weakness Left Upper Extremity Strength: Mild Weakness - Sensation Right Upper Extremity Sensation: Intact/Normal Left Upper Extremity Sensation: Intact/Normal Comments:: RLE is slap foot when walking. Balance - Sitting Balance Static Sitting Balance: Poor Dynamic Sitting Balance: Poor - Standing Balance Static Standing Balance: Poor Dynamic Standing Balance: Poor - Comments Balance Assessment Comments: Poor ADL Skills - Self Feeding Self Feeding: Min Assist - Grooming Grooming: Min Assist - Bathing Bathing UE: Min Assist Bathing LE: Min Assist - Dressing Dressing UE: Min Assist Dressing LE: Min Assist - Toilet Management Toileting Management: Min Assist Functional Mobility - Bed Mobility Rolling R/L: Min Assist Scooting: Min Assist Supine to Sit: Min Assist Sit to Supine: Min Assist - Transfers Sit to Stand: Min Assist, 2 person assist Stand to Sit: Min Assist, 2 person assist Stand Pivot Transfers: Min Assist, 2 person assist - Ambulation Weight Bearing Status: FWB Assistive Device Used: Rolling Walker Assistance needed with Ambulation: Min Assist, 2 person assist - Safety Awareness Safety Awareness: Poor SHAHNAZ INDEX SCORE: 22 Additional Treatment Performed - Additional units charged ADL: 17 - Time with patient Length of Evaluation: 16 Total treatment time: 33 Activities Do you enjoy playing games?: No Would you be interested in leaving your room for activities?: Yes Would you enjoy group activities?: Yes Do you have difficulty with your vision?: No Patient Interests:: Puzzles/Games, Visiting/Socializing Patient Education Patient Education: Home Exercise Program, Home Safety, Education of Plan of Care Teaching Recipient: Patient, Family Teaching Methods: Discussion Assessment Problem List:: Decreased level of function, Requires training/education, Decreased safety/Risk of falls, Weakness Rehab Potential: Good Further Therapy Indicated?: Yes Candidate for Swing Bed for Therapy Services?: yes Evaluation Complexity: HISTORY: Medium, EXAM OF BODY SYSTEMS: Medium, CLINICAL DECISION MAKING: Medium Short Term Goals - Goals GOAL 1: Pt to be able to complete toilet transfer CGA. Goal to be met by: 12/21/17 GOAL 2: Pt to increase dyn. std. balance to Good-/F+ to complete ADLS. Goal to be met by: 12/21/17 GOAL 3: Pt to increase personal hygiene to CGA. Goal to be met by: 12/21/17 [facility] Goals GOAL 1: Pt to be able to complete toilet transfer Mod-I. Goal to be met by: 12/27/17 GOAL 2: Pt to increase dyn. std. balance to Good to complete ADLS. Goal to be met by: 12/27/17 GOAL 3: Pt to increase personal hygiene to independent. Goal to be met by: 12/27/17 Plan Plan of Care: Therapeutic EX, Neuromuscular Re-Educ, Therapeutic Activity, Self- Care/Home Management Frequency of Treatment: 1-2 X day, as tolerated Duration of Treatment: 2 Weeks Anticipated Discharge Destination: [facility] Treatment Diagnosis (ICD 10 Codes): Muscle weakness, M62.87, Z74.1 Need for assistance with personal care Has the Physician been added for Co-signature?: Yes
[2017-12-15] MEDS: DUONEB NEB SCH ×4 (04:40→21:33)
[2017-12-15] MEDS: LIPITOR PO SCH ×2 (04:58→20:36)
[2017-12-15] MEDS: MUCINEX PO SCH ×3 (04:58→20:36)
[2017-12-15] MEDS: SOLU-MEDROL 125 MG IVP SCH ×4 (04:59→20:37)
[2017-12-15] MEDS: VITAMIN D PO SCH ×3 (04:59→20:36)
[2017-12-15] MEDS: TESSALON PERLES PO SCH ×4 (04:59→20:36)
[2017-12-15] MEDS: ZOSYN 3.375 GM 3.375 GM in SODIUM CHLORIDE 50 ML IV SCH ×5 (04:59→23:14)
[2017-12-15] MEDS: TIMOPTIC 0.5% OPTH OP SCH ×2 (04:59→20:37)
[2017-12-15] MEDS: PROTONIX PO SCH (06:06)
[2017-12-15] MEDS: TYLENOL PO SCH (08:55)
[2017-12-15] MEDS: ASPIRIN CHEWABLE PO SCH (08:55)
[2017-12-15] MEDS: FLORASTOR PO SCH (08:56)
[2017-12-15] MEDS: PYRIDIUM PO SCH (08:56)
[2017-12-15] MEDS: LEXAPRO PO SCH (08:57)
[2017-12-15] MEDS: LOVENOX SUBCUT SCH (08:59)
--- NOTE | 2017-12-15 10:19 | DI ---
EXAM: Two views of the chest. History: Short of breath Comparison: Chest radiograph 12/12/2017 Findings: Heart is enlarged. Pacer device. Elevated right hemidiaphragm again noted. Interstitial thickening is seen at the lung bases. No significant pleural fluid and no pneumothorax. Atheroscle rotic vascular calcifications. No acute osseous abnormalities. Impression: 1. Cardiomegaly. 2. Interstitial thickening seen at the lung bases could be related to edema, fibrosis or interstitia l pneumonitis. Recommend correlation with high-resolution chest CT.
--- NOTE | 2017-12-15 10:30 | HP ---
DATE OF SERVICE: 12/13/17 CHIEF COMPLAINT: The patient is admitted from Transitional Care Unit for persistent pneumonia and needing antibiotics. HISTORY OF PRESENT ILLNESS: Juan Woods who is an 87 year old male came to the emergency room with aspiration, shortness of breath and found to have fever and bibasilar pneumonia. Admitted to the hospital. WBC was 12,000 and started on the antibiotic Rocephin, IV fluids and steroids. Repeat chest x-ray done two days ago which still showed the persistent pneumonia. The patient is still coughing and hard time getting the phlegm so thought it would be appropriate for the patient to be transitional care and get IV antibiotics more fci. Been discussed with the patient's family and verbalized understanding as the patient will be placed in the transitional care. REVIEW OF SYSTEMS: CONSTITUTIONAL: No fever, no chills. HEENT: Normal. Throat - some problems swallowing. ENDOCRINE: No weight gain; no weight loss. CVS: No chest pain. No PND, no orthopnea. No shortness of breath. No PND, no orthopnea. RESPIRATORY: Cough and congestion. No hemoptysis. GI: No nausea, no vomiting. No abdominal pain. No melena. : No hematuria. No polyuria. MUSCULOSKELETAL: Back pain. PSYCHIATRIC: Not anxious. No depression. No suicidal thoughts. No homicidal thoughts. SKIN: Intact, no open lesions. PAST MEDICAL HISTORY: CAD Permanent pacemaker Dyslipidemia CVA right side Dysphagia History of pneumonia GERD Osteoarthritis Depression Anxiety PAST SURGICAL HISTORY: Glaucoma history PERSONAL HISTORY: Does smoke, one cigarette a day and drinks one beer a day. He lives at the assisted. The patient's family is very caring. The patient's daughter is at the bedside. FAMILY HISTORY: Not significant MEDICATIONS: (HOME) Timolol Pantoprazole Probiotic Ferrous Sulfate Escitalopram Atorvastatin Aspirin Tylenol Vitamin D3 Pyridium ALLERGIES: Melatonin PHYSICAL EXAMINATION: V/S: BP 136/60, respiratory rate 18, heart rate 60, temperature 97.9, saturation 94 on 2L. HEENT: Atraumatic, normocephalic. No scleral icterus. Pallor positive. Mucosa dry. NECK: Supple. No JVD, no bruit. No lymphadenopathy. No thyromegaly. HEART: S1, S2 normal. No murmur. No cyanosis or clubbing. No ascites. LUNGS: Decreased with basilar crackles. ABDOMEN: Soft, nontender. Bowel sounds are active. No CVA tenderness. No rigidity or guarding. EXTREMITIES: No pedal edema. No cyanosis or clubbing MUSCULOSKELETAL: Normal joints, no swelling. NEUROLOGIC: The patient is awake and alert. Right-sided mild weakness. SKIN: Intact; no open lesions. LYMPHATIC: No lymph nodes palpable. LABS: White count 5.57, hemoglobin 10.7, hematocrit 31.9, platelet count 217. Sodium 136, potassium 3.6, chloride 105, bicarb 21, BUN 29, creatinine 0.97, glucose 152. ASSESSMENT: 1. ASPIRATION PNEUMONIA 2. DYSPHAGIA 3. CVA WITH RIGHT-SIDED WEAKNESS 4. DYSLIPIDEMIA 5. PERMANENT PACEMAKER 6. OSTEOARTHRITIS 7. DJD SPINE PLAN: 1. Admit patient to transitional care unit. 2. IV antibiotic Zosyn. 3. IV fluids 40 mL/hr. 4. Levalbuterol. 5. Solu-Medrol 80 q.8. 6. Daily I & O's. TIME SPENT: MORE THAN 65 MINUTES [facility]
[2017-12-15] MEDS: SODIUM CHLORIDE 1,000 ML IV SCH (23:14)
[2017-12-16] MEDS: DUONEB NEB SCH ×4 (04:40→21:14)
[2017-12-16] MEDS: SOLU-MEDROL 125 MG IVP SCH ×3 (05:52→22:41)
[2017-12-16] MEDS: PROTONIX PO SCH (05:52)
[2017-12-16] MEDS: ZOSYN 3.375 GM 3.375 GM in SODIUM CHLORIDE 50 ML IV SCH ×3 (05:52→17:49)
[2017-12-16] MEDS: VITAMIN D PO SCH ×2 (08:30→20:09)
[2017-12-16] MEDS: LEXAPRO PO SCH (08:30)
[2017-12-16] MEDS: MUCINEX PO SCH ×2 (08:31→20:09)
[2017-12-16] MEDS: TESSALON PERLES PO SCH ×3 (08:31→20:09)
[2017-12-16] MEDS: PYRIDIUM PO SCH (08:31)
[2017-12-16] MEDS: TYLENOL PO SCH (08:31)
[2017-12-16] MEDS: ASPIRIN CHEWABLE PO SCH (08:31)
[2017-12-16] MEDS: FLORASTOR PO SCH (08:32)
[2017-12-16] MEDS: LOVENOX SUBCUT SCH (08:32)
--- NOTE | 2017-12-16 15:33 | CT ---
EXAM: CT of the chest without contrast History: Short of breath Comparison: Chest radiograph 12/15/2017 Technique: Multiplanar CT images through the chest were obtained without the administration of IV co ntrast. Findings: Heart is enlarged. Coronary calcifications. No pericardial effusion. No thoracic aortic aneurysm. No axillary or mediastinal lymphadenopathy. Evaluation for hilar lymph nodes is limited due to the lack of contrast administration but no bulky adenopathy is seen. Calcified granulomas are seen within the thorax. No consolidated pneumonia. No pleural fluid and no pneumothorax. No suspi cious lung masses or lung nodules. Scattered areas of subsegmental atelectasis. Mild emphysema. Pe ripheral basilar reticular opacities with no definite honeycombing identified. There may be some deg ree of traction bronchiectasis seen at the lung bases but difficult to definitively determine. Tiny hiatal hernia. Cholelithiasis. A few small hepatic cysts. No acute osseous abnormalities. De generative changes of the thoracic spine. Chronic-appearing compression deformity involving the supe rior endplate of T8. Impression: 1. Peripheral reticular opacities. Differential diagnosis includes early pulmonary fibrosis versus nonspecific interstitial pneumonitis. 2. No consolidated pneumonia. 3. Mild cardiomegaly and coronary artery disease. 4. Tiny hiatal hernia. 5. Mild emphysema
[2017-12-16] MEDS: TIMOPTIC 0.5% OPTH OP SCH (20:09)
[2017-12-16] MEDS: LIPITOR PO SCH (20:09)
[2017-12-17] MEDS: ZOSYN 3.375 GM 3.375 GM in SODIUM CHLORIDE 50 ML IV SCH ×5 (00:08→23:26)
[2017-12-17] MEDS: SOLU-MEDROL 125 MG IVP SCH ×3 (04:42→20:49)
[2017-12-17] MEDS: SODIUM CHLORIDE 1,000 ML IV SCH (04:52)
[2017-12-17] MEDS: DUONEB NEB SCH ×4 (05:10→21:30)
[2017-12-17] MEDS: PROTONIX PO SCH (05:33)
[2017-12-17] MEDS: ASPIRIN CHEWABLE PO SCH (08:28)
[2017-12-17] MEDS: VITAMIN D PO SCH ×2 (08:28→20:50)
[2017-12-17] MEDS: MUCINEX PO SCH ×2 (08:28→20:51)
[2017-12-17] MEDS: TYLENOL PO SCH (08:28)
[2017-12-17] MEDS: TESSALON PERLES PO SCH ×3 (08:29→20:50)
[2017-12-17] MEDS: PYRIDIUM PO SCH (08:29)
[2017-12-17] MEDS: LEXAPRO PO SCH (08:29)
[2017-12-17] MEDS: LOVENOX SUBCUT SCH (08:30)
[2017-12-17] MEDS: FLORASTOR PO SCH (08:30)
[2017-12-17] MEDS: LIPITOR PO SCH (20:50)
[2017-12-17] MEDS: TIMOPTIC 0.5% OPTH OP SCH (20:51)
[2017-12-18] MEDS: DUONEB NEB SCH ×2 (04:48→10:18)
[2017-12-18] MEDS: SOLU-MEDROL 125 MG IVP SCH (05:49)
[2017-12-18] MEDS: ZOSYN 3.375 GM 3.375 GM in SODIUM CHLORIDE 50 ML IV SCH (05:50)
[2017-12-18] MEDS: PROTONIX PO SCH (05:50)
[2017-12-18 06:00] VITALS: BP 120/42; TEMP 98.3
[2017-12-18] MEDS: PYRIDIUM PO SCH (08:54)
[2017-12-18] MEDS: TYLENOL PO SCH (08:54)
[2017-12-18] MEDS: TESSALON PERLES PO SCH (08:54)
[2017-12-18] MEDS: LEXAPRO PO SCH (08:54)
[2017-12-18] MEDS: MUCINEX PO SCH (08:54)
[2017-12-18] MEDS: ASPIRIN CHEWABLE PO SCH (08:54)
[2017-12-18] MEDS: VITAMIN D PO SCH (08:55)
[2017-12-18] MEDS: LOVENOX SUBCUT SCH (08:55)
[2017-12-18] MEDS: FLORASTOR PO SCH (08:56)
--- NOTE | 2017-12-18 10:51 | PN ---
DATE OF SERVICE: 12/15/17 SUBJECTIVE: The patient was admitted with pneumonia and aspiration, still having some cough and congestion, feeling somewhat better. REVIEW OF SYSTEMS: CONSTITUTIONAL: No fever, no chills. HEENT: Normal. ENDOCRINE: No weight gain, no weight loss. CVS: No angina symptoms. No CHF symptoms. No palpitations. No atypical chest pain for CAD. No shortness of breath. No PND, no orthopnea. RESPIRATORY: Cough and congestion. No hemoptysis. GI: No nausea, no vomiting. No abdominal pain. : No hematuria. No polyuria. MUSCULOSKELETAL: No joint swelling. PSYCHIATRIC: Not anxious. No depression. No suicidal thoughts. No homicidal thoughts. SKIN: Intact. No rash. PHYSICAL EXAMINATION: V/S: BP 133/54, respiratory rate 20, heart rate 66, temperature 98.4, saturation 100% on 2L. HEENT: Normocephalic, atraumatic. Mucosa dry. Pallor positive. No icterus. NECK: Supple. No JVD, no carotid bruit. No lymphadenopathy. LUNGS: Decreased breath sounds with basilar crackles. HEART: S1, S2 normal. No S3. No murmur, gallop or regurgitation. ABDOMEN: Soft, nontender. Bowel sounds active. No rigidity. No rebound or guarding. No CVA tenderness. EXTREMITIES: No cyanosis, clubbing or pedal edema. MUSCULOSKELETAL: No joint swelling. NEUROLOGIC: Awake, alert. Weakness. No focal deficit. LYMPHATIC: No lymph nodes palpable. SKIN: Intact. LABS: White count 10.89, hemoglobin 10.6, hematocrit 32.1, platelet count 212. Sodium 139, potassium 3.7, chloride 105, bicarb 26, BUN 34, creatinine 1.23, glucose 143. ASSESSMENT: 1. ASPIRATION PNEUMONIA 2. GLAUCOMA 3. HYPERTENSION 4. DYSLIPIDEMIA 5. COLON CANCER STATUS POST COLOSTOMY 6. KIDNEY STONE 7. OSTEOARTHRITIS 8. DEPRESSION/ANXIETY 9. PERMANENT PACEMAKER 10. RIGHT-SIDED WEAKNESS PLAN: 1. Continue Zosyn 2. Duonebs 3. Solu-Medrol 4. Daily I & O's TIME SPENT: More than 35 minutes MTDD
--- NOTE | 2017-12-18 10:58 | PN ---
DATE OF SERVICE: 12/16/17 SUBJECTIVE: The patient is admitted to the transitional care for aspiration pneumonia, getting IV antibiotics. He is still coughing. As per the patient's son-in-law, he choked on the food today. REVIEW OF SYSTEMS: CONSTITUTIONAL: No fever, no chills. HEENT: Normal. ENDOCRINE: No weight gain, no weight loss. CVS: No angina symptoms. No CHF symptoms. No palpitations. No atypical chest pain for CAD. No shortness of breath. No PND, no orthopnea. RESPIRATORY: Cough. No hemoptysis. GI: No nausea, no vomiting. No abdominal pain. : No hematuria. No polyuria. MUSCULOSKELETAL: No joint swelling. PSYCHIATRIC: Not anxious. No depression. No suicidal thoughts. No homicidal thoughts. SKIN: Intact. No rash. PHYSICAL EXAMINATION: V/S: BP 143/62, respiratory rate 13, heart rate 60, temperature 98.0, saturation 92 on 2L. HEENT: Normocephalic, atraumatic. Mucosa dry. Pallor positive. NECK: Supple. No JVD, no carotid bruit. No lymphadenopathy. LUNGS: Decreased breath sounds with basilar crackles. HEART: S1, S2 normal. No S3. No murmur, gallop or regurgitation. ABDOMEN: Soft, nontender. Bowel sounds active. No rigidity. No rebound or guarding. No CVA tenderness. EXTREMITIES: No cyanosis, clubbing or pedal edema. MUSCULOSKELETAL: No joint swelling. NEUROLOGIC: Awake, alert. No focal deficit. LYMPHATIC: No lymph nodes palpable. SKIN: Intact. LABS: White count 10.8, hemoglobin 10.6, hematocrit 32.1, platelet count 212. Sodium 139, potassium 3.7, chloride 105, bicarb 26, BUN 34, creatinine 1.23, glucose 143. ASSESSMENT: 1. ASPIRATION PNEUMONIA 2. HISTORY OF CVA 3. DYSLIPIDEMIA 4. COLON CANCER STATUS POST COLOSTOMY WITH REVERSAL 5. KIDNEY STONES 6. OSTEOARTHRITIS 7. DEPRESSION 8. ANXIETY 9. GLAUCOMA 10. PERMANENT PACEMAKER 11. RIGHT-SIDED WEAKNESS PLAN: 1. Continue Zosyn 2. IV fluids 3. Solu-Medrol 4. Daily I & O's 5. CT of the chest without contrast to further evaluate the basilar infiltrates TIME SPENT: More than 35 minutes MTDD
--- NOTE | 2017-12-18 11:07 | PN ---
DATE OF SERVICE: 12/17/17 SUBJECTIVE: CT scan of the chest did show some basilar infiltrates, chronic vs acute. He is still having some coughing episodes with feeding. REVIEW OF SYSTEMS: CONSTITUTIONAL: No fever, no chills. HEENT: Normal. ENDOCRINE: No weight gain, no weight loss. CVS: No angina symptoms. No CHF symptoms. No palpitations. No atypical chest pain for CAD. No shortness of breath. No PND, no orthopnea. RESPIRATORY: Cough with eating. No hemoptysis. GI: No nausea, no vomiting. No abdominal pain. : No hematuria. No polyuria. MUSCULOSKELETAL: No joint swelling. PSYCHIATRIC: Not anxious. No depression. No suicidal thoughts. No homicidal thoughts. SKIN: Intact. No rash. PHYSICAL EXAMINATION: V/S: BP 156/64, respiratory rate 14, heart rate 60, temperature 97.9, saturation 99. HEENT: Normocephalic, atraumatic. Mucosa dry. Pallor positive. No icterus. NECK: Supple. No JVD, no carotid bruit. No lymphadenopathy. LUNGS: Decreased breath sounds with basilar crackles. HEART: S1, S2 normal. No S3. No murmur, gallop or regurgitation. ABDOMEN: Soft, nontender. Bowel sounds active. No rigidity. No rebound or guarding. No CVA tenderness. EXTREMITIES: No cyanosis, clubbing or pedal edema. MUSCULOSKELETAL: No joint swelling. NEUROLOGIC: Awake, alert. No focal deficit. LYMPHATIC: No lymph nodes palpable. SKIN: Intact. LABS: White count 10.89, hemoglobin 10.6, hematocrit 32.1, platelet count 212. Sodium 139, potassium 3.7, chloride 105, bicarb 26, BUN 34, creatinine 1.23, glucose 143. ASSESSMENT: 1. PNEUMONIA, ASPIRATION NEEDING ASSISTED ANTIBIOTICS, PERSISTENT ASPIRATION 2. HISTORY OF CVA 3. PERMANENT PACEMAKER 4. RIGHT-SIDED WEAKNESS PLAN: 1. Continue Zosyn 2. IV fluids 3. Steroids 4. Daily I & O TIME SPENT: More than 35 minutes MTDD
--- NOTE | 2017-12-18 20:22 | PCM.HOSP ---
- Initial TCU Admit [id number] 45 Minutes High Severity ([id number]): 12/14 - Subsequent TCU Care [id number] 35 Minutes per Day ([id number]): 12/15. 12/16. 12/17 - TCU Discharge [id number] More Than 30 Minutes ([id number]): 12/18
--- NOTE | 2017-12-19 13:45 | DS ---
DATE OF SERVICE: 12/18/17 FINAL DIAGNOSIS: 1. Aspiration pneumonia 2. CVA with right sided weakness, mild 3. Dyslipidemia 4. Colon cancer, status post colostomy with reversal 5. Kidney stones 6. Osteoarthritis 7. Depression 8. Anxiety 9. Glaucoma 10.Pacemaker 11.Colonoscopy and endoscopy in 2018 DISCHARGE INSTRUCTIONS: Discharge the patient back to the longterm. CBC and CMP within one week. PT/ OT evaluate and treat. Continue the rest of the longterm medications. MEDICATIONS AT DISCHARGE: Tylenol Acetaminophen/Diphenhydramine Aspirin Atorvastatin Vitamin D3 Citalopram Ferrous Sulfate Probiotics Protonix Timolol eye drops NEW PRESCRIPTIONS: Keflex 500mg twice a day for 5 days DUO NEBS three times a day for one week and PRN DIET INSTRUCTIONS: Cardiac Svp Programmatic Tv please consult. Special modified diet, mechanical soft diet. ACTIVITY: Can participate in the longterm activities. DISEASE SPECIFIC EDUCATION: Pneumonia Dehydration Aspiration and risk of pneumonia and breathing probably been discussed and verbalized understanding. HOSPITAL COURSE: Juan Woods who is an 87 year old male [facility] the coughing, congestion and shortness of breath found to have aspiration pneumonia. Started on the antibiotics. Repeat chest x-ray showed the persistent pneumonia. The patient was placed in the transitional care unit, given antibiotics Zosyn. The patient was still aspirating some and the diet was changed to Honey Thickened Liquid, did not have any problems. Repeat CAT of the chest shows the betterment of the pneumonia. The patient been more awake and alert and did not have any complications. At that time the patient being discharged home. TIME SPENT: MORE THAN 65 MINUTES MTDD
== END 2017-12-18 12:44 | DRG 65 ==
LOC: MEDSURG B 15:14
PROVIDERS: ADMIT Emergency Medicine; ATTEND Emergency Medicine
DX: I63.9 Cerebral infarction, unspecified (principal); G81.91 Hemiplegia, unspecified affecting right dominant side; E78.5 Hyperlipidemia, unspecified; M19.90 Unspecified osteoarthritis, unspecified site; F41.8 Other specified anxiety disorders; R06.02 Shortness of breath; R13.10 Dysphagia, unspecified; M47.9 Spondylosis, unspecified; I10 Essential (primary) hypertension; H40.9 Unspecified glaucoma
CPT/HCPCS: 36415; 80053; 81001; 85025; 87081; 94640; 94667; 94668; 97802

== ENCOUNTER 2017-12-26 13:19 | Outpatient (CLI) | END 2017-12-26 13:20 | disposition home or self-care (01) | LOC: NONPT 13:19 | PROVIDERS: ATTEND Emergency Medicine | DX: R30.0 Dysuria (principal) | CPT/HCPCS: 81001; 87086 ==

== ENCOUNTER 2017-12-27 08:52 | Outpatient (CLI) | END 2017-12-27 08:53 | disposition home or self-care (01) | LOC: NONPT 08:52 | PROVIDERS: ATTEND Emergency Medicine | DX: R79.9 Abnormal finding of blood chemistry, unspecified (principal) ==

== ENCOUNTER 2017-12-29 07:52 | Outpatient (CLI) | END 2017-12-29 07:53 | disposition home or self-care (01) | LOC: NONPT 07:52 | PROVIDERS: ATTEND Emergency Medicine | DX: D69.6 Thrombocytopenia, unspecified (principal) | CPT/HCPCS: 85025 ==

== ENCOUNTER 2018-03-07 07:42 | Outpatient (CLI) | END 2018-03-07 07:43 | disposition home or self-care (01) | LOC: NONPT 07:42 | PROVIDERS: ATTEND Family Medicine | DX: R30.0 Dysuria (principal) | CPT/HCPCS: 81001; 87086 ==

== ENCOUNTER 2019-01-03 15:34 | Outpatient (CLI) | payer OTHER | END 2019-01-03 15:35 | disposition home or self-care (01) | LOC: NONPT 15:34 | PROVIDERS: ATTEND Family Medicine | DX: E78.5 Hyperlipidemia, unspecified (principal); D50.9 Iron deficiency anemia, unspecified; E55.9 Vitamin D deficiency, unspecified | CPT/HCPCS: 80053; 80061; 85025 ==